=== PATIENT | female | born 1955 ===

== ENCOUNTER 2024-10-25 07:55 | Day surgery (SDC) | payer OTHER ==
[~2024-10-25 07:55] MED LIST: CANDESARTAN CILE8 M1 PO; LEVOTHYROXINE25 MCG PO; VITAMIN D; ZOCOR20 MG PO
[2024-10-25] MEDS ORDERED: HEMOSTATIC MATRIX 1 KIT KIT TOP ONE (12:00)
[2024-10-25] MEDS ORDERED: BUPIVACAINE HCL 30 ML VIAL IJ ONE (12:00)
[2024-10-25] MEDS ORDERED: POVIDONE-IODINE 118 ML BOTT TOP ONE (12:00)
[2024-10-25] MEDS ORDERED: CEFTRIAXONE SODIUM 2,000 MG VIAL IV SCH (12:00)
[2024-10-25] MEDS ORDERED: METRONIDAZOLE/SODIUM CHLORIDE 500 MG/100 ML PIGGYBACK IV SCH (12:00)
[2024-10-25] MEDS ORDERED: DIBUCAINE 30 GM TUBE RECTAL ONE (12:00)
[2024-10-25] MEDS ORDERED: LIDOCAINE HCL 1%/EPINEPHRINE 20ML VIAL IJ ONE (12:00)
== END 2024-10-25 16:40 | disposition home or self-care (01) ==
LOC: CIR.AMB 07:55
PROVIDERS: ATTEND Colon & Rectal Surgery
DX: D12.8 Benign neoplasm of rectum (principal); K92.1 Melena; I10 Essential (primary) hypertension